=== PATIENT | female | born 1965 | race African-American/Black ===

== ENCOUNTER 2025-06-15 15:47 | Emergency (ER) | payer OTHER, SELFPAY ==
[2025-06-15 16:09] VITALS: BP 197/88
[2025-06-15 16:26] LABS: Hematocrit 40.9 % (37.0-47.0); Hemoglobin 13.2 g/dL (12.0-16.0); Mean Corp Hgb Conc. 32.3 g/dL (33.0-37.0); Mean Corpuscular Volume 86.5 fL (81.0-99.0); Nucleated Red Blood Cells % 0 %; Platelet Count 240 10^3/uL (130-400); Red Cell Dist. Width 13.5 % (11.5-14.5)
[2025-06-15 16:33] LABS: APTT 32.2 Sec (23.4-35.0)
[2025-06-15 16:38] LABS: ALT (SGPT) 29 U/L (0-35); AST (SGOT) 21 U/L (14-36); Albumin 4.1 g/dl (3.5-5.0); Alkaline Phosphatase 113 U/L (38-126); Blood Urea Nitrogen 12 mg/dl (7-17); Calcium 9.4 mg/dl (8.4-10.2); Carbon Dioxide 27 mmol/L (22-30); Chloride 106 mmol/L (98-107); Glucose 173 mg/dl (70-99); Potassium 4.4 mmol/L (3.5-5.1); Sodium 139 mmol/L (135-145); Total Protein 7.7 g/dl (6.3-8.2); eGFR > 60.00
[2025-06-15 16:47] LABS: Troponin I < 0.012 ng/ml
[2025-06-15 16:54] LABS: COVID-19 Antigen Negative (Negative)
--- NOTE | 2025-06-15 18:29 | ED.GENMED ---
History of Present Illness
General
Chief Complaint: Breathing Problem
Source: patient
Exam Limitations: none
Time Seen by Provider: 06/15/25 17:58
Nursing documentation reviewed up to this point in time: agreed with
History of Present Illness
History of Present Illness:
59-year-old female with history of GERD, IDDM, HIV positive, presents stating she coughed up blood and then she also felt that there was blood coming from her stomach. She states this morning at 7 AM while rinsing her mouth she saw blood in the
sink, later she coughed and coughed up blood mixed with mucus. She also feels constipated. She states she had a cough for 1 year and has not discussed it with anybody. She saw her PCP Dr. Robertson last month but did not mention her cough. She
denies fever or chills. Denies chest pain or shortness of breath. She does have mild abdominal discomfort that she states is due to constipation. Her last 'good' bowel movement was last week, has had small hard small stools.
Past History
Past History
ED Past Medical History: GERD, IDDM, Other (HIV positive) and Other (History of sciatica)
ED Past Surgical History:
Social History
Tobacco: Non-smoker
Personal:
Living: with family
Review of Systems
Review of Systems
Allergies reviewed?: Yes
All Other Systems: ROS reviewed and negative except as documented in HPI and ROS
Phy Exam
Physical Exam
Physical Exam:
GENERAL: No acute distress. A&Ox3.
CONSTITUTIONAL: Afebrile.
EYES: clear, conjunctivae normal
ENMT: moist mucus membranes, Pharynx nl
RESPIRATORY: Regular respirations, nonlabored, lungs clear. No cough noted
CARDIOVASCULAR: Regular rate and rhythm, no murmurs, no rubs.
GI: Soft, mild tenderness left side abdomen to palpation, normal BS
MUSCULOSKELETAL: Moves with ease. Well perfused.
SKIN: Warm, dry, normal
PSYCH: Normal mood and affect. Well kept, interactive and appropriate
NEUROLOGIC: Awake, alert and oriented. No focal neurological deficits
Scores
Heart Failure Risk
Heart Failure Risk Score: Not Applicable
Course
Orders/Labs/Results
Orders:
Orders
06/15/25 15:47
EKG [Electrocardiogram (*1)] Urgent
Reason for Study: Shortness of Breath
EKG- Treatment ONCE
06/15/25 16:15
COVID-19 Antigen Urgent
Source: Nasal Swab
Complete Blood Count/With Diff Urgent
Comprehensive Metabolic Panel Urgent
PTT Urgent
Troponin I Urgent
Influenza A+B Rapid Molecular Urgent
LAURA Source: Nasal Swab
Specimen Description:
06/15/25 18:31
CR Chest - 2 Views Urgent
Comment:
Reason For Exam: coughing blood
06/15/25 18:32
CR Abdomen - 1 View Urgent
Comment:
Reason For Exam: constipation
Abnormal Lab Results
06/15/25
16:15
MCHC 32.3 L g/dL
(33.0-37.0)
Absolute Monos (auto) 0.7 H 10^3/uL
(0.1-0.6)
Monocytes % 10.4 H %
(1.7-9.3)
Glucose 173 H mg/dl
(70-99)
06/15/25 16:15
06/15/25 16:15
Vital Signs
Initial and Last Documented VS:
Initial Vital Signs
Temp Pulse Resp Pulse Ox
98.4 F 96 18 94
06/15/25 16:07 06/15/25 16:07 06/15/25 16:07 06/15/25 16:07
Last Documented Vital Signs
Temp Pulse Resp BP Pulse Ox
98.1 F 75 20 161/83 96
06/15/25 21:00 06/15/25 21:00 06/15/25 21:00 06/15/25 21:00 06/15/25 21:00
MDM/Problems Addressed
Differential Diagnosis Includes:
GERD, bronchitis
MDM/Problems Addressed:
59-year-old female with history of GERD, IDDM, HIV positive, presents stating she's hadcoughed up blood and then she also felt that there was blood coming from her stomach. She states this morning at 7 AM while rinsing her mouth she saw blood in
the sink, later she coughed and coughed up blood mixed with mucus. She also feels constipated. She states she had a cough for 1 year and has not discussed it with anybody. She saw her PCP Dr. Robertson last month but did not mention her cough. She
denies fever or chills. Denies chest pain or shortness of breath. She does have mild abdominal discomfort that she states is due to constipation. Her last 'good' bowel movement was last week, has had small hard small stools.
CBC normal CMP normal
Troponin WNL
COVID-negative
Abdominal film initially read by this examiner, moderate amount of stool throughout the colon
1:00 PM:
Radiology report of abdominal film is in alignment with my read above
Chest x-ray: NAD
Copies of both given to patient
Final diagnosis: Constipation, hx of hemoptysis, GERD
She has a cargo handler here but she cannot think of the name, she will follow-up with that person if her hemoptysis continues.
*Pulse Oximetry
SaO2: 94
Oxygen Mode of Delivery: Room air
Patient hypoxic: no
*Critical Care Note
Total Time (30-74mins, 75-104mins- exclusive of procedures): Not Applicable
ED Attending Note
-
Portions of this chart may have been created with voice recognition software.� Occasional wrong word or��sound alike� substitutions may have occurred due to the inherent limitations of voice recognition software.
Discharge Plan
Departure
Patient Disposition: Home (Routine Discharge)
Date of Disposition: 06/15/25
Time of Disposition: 20:59
Patient with high blood pressure during this ER visit?: No
Condition: Good
Discharge Problem:
reported hemoptysis, Constipation, Hx of gastroesophageal reflux (GERD)
Instructions: Coughing up blood, Constipation in adults - ED (DC), Acid reflux and GERD in adults - ED (DC)
Prescriptions:
No Action
metformin 500 MG tablet
1,000 mg PO BID
ascorbic acid (vitamin C) [Vitamin C] 1,000 MG tablet
1,000 mg PO DAILY
fluconazole 200 MG tablet
200 mg PO DAILY
cholecalciferol (vitamin D3) [Vitamin D3] 1,000 UNIT capsule
2,000 unit PO DAILY
yjqldwxz-wjutrdbzwjbp-noodizc [Triumeq] 1 EACH tablet
1 ea PO DAILY
insulin aspart U-100 [Novolog FlexPen U-100 Insulin] 300 UNITS/3 ML insulin pen
10 units SC AC Qty: 5 0RF
Rx Instructions:
E11.65
insulin glargine [Lantus Solostar U-100 Insulin] 300 UNITS/3 ML insulin pen
16 units SC DAILY@0800 Qty: 5 0RF
Rx Instructions:
E11.65
(DME) pen needle, diabetic 1 EACH needle
1 ea MC ACHS Qty: 200 0RF
Rx Instructions:
BD HIRAM pen needles
E11.65
Referrals:
Vikas Robertson DO [Family Provider, Family Practice]
Eusebia Combs MD [Active, Gastroenterology] - Next open appointment
Activity Restrictions/Additional Instructions:
As we discussed, nothing worrisome in your workup here today. Your blood work is all normal.
Covid test is negative.
I provided you with instructions on constipation, there is a moderate amount of stool in your colon but nothing worrisome.
Your chest x-ray is normal
Try Omeprazole 20 mg daily for 2-3 weeks to see if it helps (you can get it over the counter)
I provided you the name of a GI doctor to follow-up with, call Wednesday and make next available appointment.
Interventions
Interventions:
*Risk Screen - Suicide Last Done: 06/15/25 16:08
*General Assessment Last Done: 06/15/25 16:08
*Neglect/Abuse Screening Last Done: 06/15/25 16:08
*ED COVID-19 Vaccine History Last Done: 06/15/25 16:08
*ED Influenza Vaccine History Last Done: 06/15/25 16:08
*Nursing Disposition Last Done: 06/15/25 21:01
ED- Cardiac Assessment Last Done: 06/15/25 19:37
ED- Pulmonary Assessment Last Done: 06/15/25 19:38
Discharge Date and Time
Discharge Date/Time: 06/15/25 21:01
Print Language: ETHIOPIAN
[2025-06-15 19:00] VITALS: BP 140/66
[2025-06-15 21:00] VITALS: BP 161/83
== END 2025-06-15 21:01 | disposition home or self-care (01) ==
LOC: EMR 15:47
PROVIDERS: EMERGENCY PHYSICIAN Emergency Medicine; FAMILY PHYSICIAN Family Medicine
DX: R04.2 Hemoptysis (principal); K59.00 Constipation, unspecified; K21.9 Gastro-esophageal reflux disease without esophagitis; E10.9 Type 1 diabetes mellitus without complications; Z21 Asymptomatic human immunodeficiency virus [HIV] infection status; Z79.4 Long term (current) use of insulin; Z79.84 Long term (current) use of oral hypoglycemic drugs
CPT/HCPCS: 99284; 71046; 74018; 80053; 84484; 85025; 85730; 87502; 87811; 93005